=== PATIENT | male | born 1945 | race Caucasian/White ===

== ENCOUNTER 2017-01-14 09:44 | Outpatient (CLI) | payer MEDICARE ==
[~2017-01-14] VITALS: Ht 175.3 cm; Wt 90.5 kg
[~2017-01-14 09:44] MED LIST: AGM875T PO; AMLO10TA82 PO; AMLO5TAB2 PO; ASP325T PO; ASP81CT PO; ATEN100T88 PO; ATEN25TA PO; CEPH500C PO; CETI10TA17 PO; CHOL10003 PO; CHOL200035 PO; CLOP75TA PO; DILT180C94 PO; DXZS2T PO; ENAL20TA PO; ENAL20TA76 PO; ENLP10T PO; FLC100T1 PO; FLUT16SP22 NSEACH; GBPN300C PO; ISOS30TA3 PO; LOVA40TA2 PO; NFPRILOC40 PO; [UNRECOGNIZED DRUG - OTHER]
[2017-01-14 09:55] VITALS: BP 156/91
[2017-01-14] MEDS ORDERED: FLUT15.88 NS (10:04)
== END 2017-01-14 10:16 | disposition home or self-care (01) ==
LOC: PREOP 09:44
PROVIDERS: ATTEND Podiatrist Foot & Ankle Surgery
DX: Z01.818 Encounter for other preprocedural examination (principal); M72.2 Plantar fascial fibromatosis; M20.21 Hallux rigidus, right foot
CPT/HCPCS: 87081

== ENCOUNTER 2017-01-19 06:15 | Day surgery (SDC) | payer MEDICARE ==
[~2017-01-19] VITALS: Ht 175.3 cm; Wt 90.5 kg
[~2017-01-19 06:15] MED LIST changes: +FLUT15.88 NS
[2017-01-19 06:35] VITALS: BP 163/96
[2017-01-19] MEDS ORDERED: LACTATED RINGERS 1,000 ML IV PRN (06:50)
[2017-01-19] MEDS ORDERED: NS (IVPB) 50 ML ONE (06:52)
[2017-01-19] MEDS ORDERED: ceFAZolin 1,000 MG (ANCEF) VIAL ONE (06:52)
[2017-01-19] MEDS ORDERED: ONDANSETRON 4 MG/2 ML (SDV) Z0FRAN IV ONE (07:00)
[2017-01-19] MEDS ORDERED: FAMOTIDINE 20MG/2ML IV (PEPCID) IV ONE (07:00)
[2017-01-19] MEDS ORDERED: SCOPOLAMINE 1.5 MG (TRANSDERM-SCOP) PATCH TOP ONE (07:00)
[2017-01-19] MEDS ORDERED: ceFAZolin 1 GM/NS 50 ML IVPB IV ONE ×2 (07:15)
[2017-01-19] MEDS ORDERED: DEXAMETHASONE 10 MG/ML (DECADRON) 1 ML VIAL ONE ×2 (07:17→07:23)
[2017-01-19] MEDS ORDERED: LIDOCAINE 1% INJ 20 ML (XYLOCAINE) VIAL ONE (07:18)
[2017-01-19] MEDS ORDERED: BUPIVACAINE 0.5% 30 ML (SENSORCAINE) VIAL ONE (07:18)
[2017-01-19] MEDS ORDERED: LIDOCAINE PF 2% 5 ML (XYLOCAINE) VIAL ONE (07:23)
[2017-01-19] MEDS ORDERED: proPOfol 200 MG/20 ML (DIPRIVAN) VIAL IV ONE (07:23)
[2017-01-19] MEDS ORDERED: ONDANSETRON 4 MG/2 ML (SDV) Z0FRAN ONE (07:23)
[2017-01-19] MEDS ORDERED: LACTATED RINGERS 1,000 ML IV ONE (07:23)
[2017-01-19] MEDS ORDERED: SEVOFLURANE (ULTANE) 15 ML INHAL SOLN ONE (07:23)
[2017-01-19] MEDS ORDERED: fentaNYL INJECTION 100 MCG/2 ML AMP ONE (07:24)
[2017-01-19] MEDS ORDERED: MIDAZOLAM 2 MG/2 ML (VERSED) VIAL ONE (07:25)
--- NOTE | 2017-01-19 07:42 | Progress Note-Pre Operative ---
Pre-Operative Progress Note H&P Reviewed The H&P was reviewed, patient examined and no changes noted. Date Seen by Provider: Jan 19, 2017 Time Seen by Provider: 07:42 Date H&P Reviewed: Jan 19, 2017 Time H&P Reviewed: 07:41 Pre-Operative Diagnosis: Hallux Rigidus, Plantar Fasciitis, right RUI EAGLE DPM Jan 19, 2017 7:42 am
--- NOTE | 2017-01-19 09:12 | Progress Note-Post Operative ---
Post-Operative Progess Note Surgeon (s)/Incident Analyst (s) Surgeon RUI EAGLE DPM Incident Analyst: none Pre-Operative Diagnosis Hallux Rigidus, Plantar Fasciitis, right Post-Operative Diagnosis same Procedure & Operative Findings Date of Procedure 01/19/17 Procedure Performed/Findings Cheilectomy, right Endoscopic plantar fascial release, right Anesthesia Type General Estimated Blood Loss Estimated blood loss (mL): Minimal Specimens/Packing Specimens Removed Osteophytes, right 1st MTPJ Packing: none RUI EAGLE DPM Jan 19, 2017 9:12 am
[2017-01-19] MEDS ORDERED: LACTATED RINGERS 1,000 ML IV SCH (09:13)
[2017-01-19] MEDS ORDERED: HYDROcodone/APAP 5 MG/325 MG (LORTAB) TAB PO PRN (09:15)
[2017-01-19] MEDS ORDERED: ONDANSETRON 4 MG/2 ML (SDV) Z0FRAN IVP PRN ×2 (09:15)
[2017-01-19] MEDS ORDERED: MEPERIDINE (DEMEROL) INJ 50 MG/ML IVP PRN (09:15)
[2017-01-19] MEDS ORDERED: morphine INJ 10 MG/ML 1ML (SYR OR VIAL) IVP PRN (09:15)
[2017-01-19] MEDS ORDERED: HYDR-3812 PO (09:16)
--- NOTE | 2017-01-19 09:58 | Diagnostic Imaging Report ---
INDICATION: Postop foot. COMPARISON: None FINDINGS: 2 radiographic views of the right foot were obtained and show soft tissue swelling and emphysema involving the ventral surface overlying the distal metatarsals. No unexpected radiopaque foreign bodies are seen. No acute fracture or dislocation is identified. There are moderate degenerative changes of the first metatarsophalangeal joint space. Otherwise, joint spaces are maintained. No lytic or blastic bony lesions are seen. IMPRESSION: 1. Soft tissue swelling and emphysema of the right foot as described above. Correlation with recent postsurgical status is recommended. Alternatively, findings can be seen with gas-forming cellulitis. 2. No underlying osteolytic abnormalities are seen. Please note, osteomyelitis cannot be excluded based on radiographs alone. If there is concern for osteomyelitis, MRI is recommended. 3. Moderate degenerative changes of the first metatarsophalangeal joint space, but no radiographic evidence of acute fracture or dislocation. Dictated by: Dictated on workstation # [id number]
[2017-01-19 10:00] VITALS: BP 160/88
[2017-01-19 10:30] VITALS: BP 149/85
[2017-01-19 11:00] VITALS: BP 157/90
--- NOTE | 2017-01-19 11:39 | Physical Therapy Ortho Eval ---
PT Orthopedic Evaluation Type of Surgery plantar fasciotomy, patient NWB for 24 hours and then partial weight bearing Prior Level of Function Current Living Status: Significant Other Locomotion (Upon Admit): Independent Established Durable Medical Eq: Crutches Subjective Subjective Patient in bed pre tx, has no complaints of pain, no dizziness or light headedness. Nurse tells PT that the patient is already familiar with the use of crutches and states that we can go in if we want to see if he has any questions and decide if he needs to ambulate or not. Patient states that he is very familiar with using crutches in and out of his home, is aware of safe use of crutches, use on stairs (he only has one step to enter his home and another entrance has none), and has no questions and is confident in his use of them. PT then advised patient to perform ankle pumps and had him perform 10 of them and advised he do them 3x a day. Entry Into Home: Level Entry Motor Control Motor Control: Motor Control WNL ROM NT due to recent surgery Strength NT due to recent surgery Treatment Rendered Treatment: Therapeutic Exercises Exercise Instruction: Ankle Pumps Assessment/Goals Goal Time Frame: 1 Visit Plan Treatment Plan: Discharge Time Time In: 1120 Time Out: 1130 Total Billed Treatment Time: 10 Billed Treatment Time 1 visit EVL 10' Yes PT/OT Therapy GCodes Therapy Functional Limitation: Physical Therapy Test(s)/Tool used to determine: Level of Assistance Scale (as stated by patient ) Functional Limitation-Current Charge Code: MOBCUR Modifier: CI Functional Limitation-Goal Charge Code: MOBGOAL Modifier: CI Functional Limitation-D/C Charge Codes: MOBDC Modifier: CI LASHELL GARCIA PT Jan 19, 2017 11:39
[2017-01-19 11:48] VITALS: BP 157/90
--- NOTE | 2017-01-19 12:03 | OPERATIVE REPORT ---
DATE OF SERVICE: 01/19/2017 SURGEON: Chanelle Stokes DPM PREOPERATIVE DIAGNOSIS: 1. Plantar fasciitis with heel spur syndrome on the right. 2. Hallux rigidus right. POSTOPERATIVE DIAGNOSIS: 1. Plantar fasciitis with heel spur syndrome on the right. 2. Hallux rigidus right. PROCEDURES: 1. Cheilectomy right 1st metatarsal phalangeal joint. 2. Endoscopic Plantar Fascial Release, right. WOUND CLASS: Clean. ANESTHESIA: General. HEMOSTASIS: Pneumatic thigh tourniquet at 250 mmHg. INDICATION: This 71-year-old male presents complaining of chronic heel pain as well as pain associated his great toe joint. Conservative therapy has met with unsatisfactory result and the patient is agreeable to surgical intervention after risks and complications were discussed at length. No guarantees were extended to the patient and he is willing to proceed. PROCEDURE: The patient was brought back to the operating table, placed in secure supine position. A general anesthetic was then induced. Appropriate timeout was performed. A pneumatic thigh tourniquet was placed on the right lower extremity over several areas of padding and right foot was then prepped and draped in the normal sterile manner. The right foot was then elevated, allowed to exsanguinate after which the tourniquet was inflated to 250 mmHg. Attention was then directed to the medial aspect of the right heel where at a predetermined area, a one half centimeter vertical incision was created just anterior to the calcaneal tuberosity and the lesion was then extended with blunt dissection down to the plantar fascia. Obturator was then introduced into the medial incision. Along the inferior aspect of the plantar fascia and tenting the lateral skin, the obturator and canula were then introduced into the medial incision along the inferior aspect of the plantar fascia, tenting the lateral skin where a second incision was created half centimeter vertical incision. The obturator and canula were then introduced into the lateral incision. The obturator was withdrawn and the canula held in place, after which a 3 mm camera was introduced into the lateral portal, visualizing the inferior aspect of the plantar fascia. The medial third of the plantar fascia was then released sharply under direct visualization. Good reduction of the tension to the plantar fascia was appreciated at this time. The wound was flushed after which instrumentation was withdrawn from the foot. The incision were then recoapted with 3-0 Prolene in a horizontal mattress type stitch. Attention was then directed to the dorsal aspect of the right first metatarsal phalangeal joint where a 5 cm longitudinal linear incision was created. The incision was deepened in the same plane with great care to identify and retract all vital neurovascular structures. Only necessary blood vessels were cauterized as encountered. A longitudinal capsulotomy was then performed, exposing a large dorsal exostosis to the first metatarsal head as well as the base of the proximal phalanx. Utilizing a power sagittal saw and rongeur and power bur, these bony prominences were reduced. Next, a 1 mm drill was utilized to fenestrate the area of the first metatarsal head that lacked any articular cartilage, which encompassed approximately 50% of the dorsal lateral aspect of the first metatarsal head. The lateral aspect of the proximal phalanx was also addressed with fenestration with 1 mm drill. The wound was flushed with copious amounts of normal saline and closure was then performed in layers. Deep closure was performed with 3-0 Vicryl, superficial with 4-0 Vicryl, skin closed with 4-0 Prolene in a horizontal mattress type stitch. Postoperative injection consisted of 20 mL of 0.5% Marcaine injected in a local infusion to the surgical site. This was followed by 5 mg of Dexamethasone to the heel incision as well as to the first metatarsal phalangeal joint for a total of 10 mg. Postoperative dressing consisted of Betadine soaked Adaptics, sterile 4 x 4, sterile Kerlix all secured with a Coban wrap. The tourniquet was released, noting appropriate capillary refill time to all digits of the right foot. There was no crepitation in full range of motion of the right first metatarsal phalangeal joint postoperatively. Postoperative instructions were dispensed to the patient as well as prescription for Vicodin. He should followup in my office in 10 days period of time or sooner if necessary. Job ID: [id number] DocumentID: [id number] Dictated Date: 01/19/2017 09:12:05 Bulk Station Agent Date: 01/19/2017 12:03:12 Dictated By: DARNELL MARTINEZ
--- OUTSIDE RECORDS SUMMARY | 2017-01-19 12:42 | XMS REPORT ---
Author Author CRISTEL CENTENO [employer] Address Unknown Phone Unavailable Care Team Providers Care Watershed Tender Name Role Phone CRISTEL CENTENO CP Unavailable Allergies, Adverse Reactions, Alerts Substance Reaction Event Type Diltiazem 180 Mg Tablet Extended Release 24 Hr bradycardia Non Drug Allergy Atenolol 25 Mg Tablet hypotension/bradycardia - DC'd per Dr. Hidalgo Non Drug Allergy Problems Problem Type Condition Code Onset Dates Condition Status Problem Candidiasis of mouth 112.0 Active Assessment Dental examination Z01.20 Active Problem Coronary atherosclerosis of unspecified type of vessel, little traverse or graft 414.00 Active Problem Unspecified arthropathy, site unspecified 716.90 Active Problem Dental examination Z01.20 Active Problem Need for prophylactic vaccination and inoculation, Influenza V04.81 Active Problem Acute sinusitis, unspecified 461.9 Active Problem Allergic rhinitis, cause unspecified 477.9 Active Problem Personal history of colonic polyps V12.72 Active Medications Medication Code System Code Instructions Start Date End Date Status Dosage Zyrtec Allergy [facility] [address]-82 10 MG Orally Once a day [address] [facility] [address]-47 40 mg August 23, 2012 take 2 tablets by Oral route at bedtime 1 time per day Amlodipine & Diet Manage Prod NDC 0 not defined Enalapril Maleate [facility] [address]-46 20 mg August 23, 2012 1 tablet by Oral route 2 times per day Pantoprazole Sodium [facility] [address]-56 40 MG Orally Once a day 1 tablet Isosorbide Mononitrate [facility] [address]-82 10 MG Orally Twice a day [address] [facility] [address]94 81 mg August 23, 2012 take 1 tablet (81 mg ) by oral route once daily Flonase [facility] [address]-76 50 mcg/actuation 2 spray(s) intranasally 2 times a day October 12, 2012 1 sprays by Nasal route 2 times per day in each nostril Procedures Procedure Coding System Code Date Billing Notes on claim CPT-4 EC109 December 20, 2015 AMALGAM-TWO SURFACES PRIMARY/PERM CPT-4 D2150 December 20, 2015 Vital Signs Date/Time: December 20, 2015 Blood Pressure Diastolic 81 mmHg Blood Pressure Systolic 141 mmHg Height 71 in Results No Known Results Summary Purpose [employer]ClinicalWorks Submission
--- OUTSIDE RECORDS SUMMARY | 2017-01-19 12:42 | XMS REPORT | Clinical Summary ---
Author Author [facility] Organization [facility] Address Unknown Phone Unavailable Care Team Providers Care Resistor Coater Name Role Phone PCP Unavailable Source Comments Some departments are not documenting in the electronic medical record. If you do not see the information that you expected, contact Release of Information in the Health Information Management department at [phone] for further assistance in locating additional records.[facility] Allergies No Known Allergies Current Medications Prescription Sig. Disp. Refills Start End Date Status Date enalapril (VASOTEC) 20 mg take 20 mg by mouth 05/11/20 Active PO Tab Daily. 2 tablets every am 07 atenolol (TENORMIN) 100 take 100 mg by mouth 05/11/20 Active mg PO Tab Daily. Every am 07 DILTIAZEM HCL PO take 180 mg by mouth 05/11/20 Active Daily. Every pm 07 multivitamin (THERAGRAN) take by mouth Daily. 05/11/20 Active PO per tablet 07 [place]-3 Fatty take by mouth Daily. 05/11/20 Active Acids-Vitamin E (FISH 07 OIL) 1,000 mg PO Cap aspirin 325 mg PO Tab take 325 mg by mouth 05/11/20 Active Daily. 07 Active Problems Not on file Social History Tobacco Use Types Packs/Day Years Used Date Never Assessed Sex Assigned at Date Recorded Not on file Last Filed Vital Signs Not on file Plan of Treatment Health Maintenance Due Date Last Done Comments HEPATITIS C SCREENING 1946 PHYSICAL (COMPREHENSIVE) 1953 EXAM PERTUSSIS VACCINE 1957 TETANUS VACCINE 1963 COLORECTAL CANCER 1996 SCREENING SHINGLES VACCINE 2006 PREVNAR/PNEUMOVAX (#1) 2011 INFLUENZA VACCINE 01/23/2017 Results Not on filefrom Last 3 Months
--- OUTSIDE RECORDS SUMMARY | 2017-01-19 12:42 | XMS REPORT ---
Author Author NERI WOOD Organization [employer] Address Unknown Phone Unavailable Care Team Providers Care Barrel Cap Setter Name Role Phone NERI WOOD CP Unavailable Allergies No Known Allergies Problems Problem Type Condition ICD-9 Code Onset Dates Condition Status Assessment Dental examination V72.2 Active Problem Unspecified arthropathy, site unspecified 716.90 Active Problem Allergic rhinitis, cause unspecified 477.9 Active Problem Coronary atherosclerosis of unspecified type of vessel, [place] or graft 414.00 Active Problem Acute sinusitis, unspecified 461.9 Active Problem Candidiasis of mouth 112.0 Active Problem Personal history of colonic polyps V12.72 Active Problem Need for prophylactic vaccination and inoculation, Influenza V04.81 Active Medications No Known Medications Procedures Procedure Coding System Code Date RESIN COMPOS - ONE SURFACE ANTERIOR CPT-4 D2330 November 03, 2014 RESIN COMPOS - ONE SURFACE ANTERIOR CPT-4 D2330 November 03, 2014 AMALGAM-ONE SURFACE PRIMARY/PERM CPT-4 D2140 November 03, 2014 Results No Known Results Summary Purpose [employer]ClinicalWorks Submission
== END 2017-01-19 11:48 | disposition home or self-care (01) ==
LOC: SDC 06:15
PROVIDERS: ATTEND Podiatrist Foot & Ankle Surgery
DX: M72.2 Plantar fascial fibromatosis (principal); M77.31 Calcaneal spur, right foot; M20.21 Hallux rigidus, right foot; E78.00 Pure hypercholesterolemia, unspecified; I10 Essential (primary) hypertension; K21.9 Gastro-esophageal reflux disease without esophagitis; I25.10 Atherosclerotic heart disease of native coronary artery without angina pectoris; Z79.899 Other long term (current) drug therapy; Z95.5 Presence of coronary angioplasty implant and graft
CPT/HCPCS: 73620